=== PATIENT | male | born 1995 | race Caucasian/White ===

== ENCOUNTER 2019-09-18 17:56 | Emergency (ER) | payer BC ==
--- NOTE | 2019-09-18 18:24 | ED Physician Documentation ---
PD HPI CHEST PAIN - Stated complaint Stated Complaint: CHEST PX,SOA - Chief complaint Chief Complaint: General - History obtained from History obtained from: Patient - History of Present Illness Timing - onset: How many days ago (3) Timing - onset during: Rest Timing - duration: Days (3) Timing - details: Gradual onset Pain level max: 6 Pain level now: 0 Quality: Sharp Location: Left chest Radiation: Left upper extremity Improved by: Nothing Worsened by: Other (nothing) Associated symptoms: Shortness of air. No: Diaphoresis, Nausea, Vomiting, Feeling faint / dizzy, General Weakness, Palpitations, Cough - Additional information Additional information: 24-year-old male states that he has had a few episodes of chest pain over the past 3 to 4 days. They last for 1 to 2 minutes at a time. Described as sharp and on the left side of the chest. When these occur it is painful to breathe. He states that today the left side of his chest went numb as did his left shoulder. This resolved spontaneously. Currently is asymptomatic. No family history of aortic dissection, pulmonary embolus or young acute coronary syndrome. No syncope or near syncope. no recent travel or surgery Review of Systems Ten Systems: 10 systems reviewed and negative Constitutional: denies: Fever, Chills Nose: denies: Rhinorrhea / runny nose, Congestion Throat: denies: Sore throat Cardiac: denies: Palpitations, Pedal edema, Calf pain GI: denies: Nausea, Vomiting, Diarrhea Musculoskeletal: denies: Neck pain, Back pain Neurologic: denies: Headache PD PAST MEDICAL HISTORY - Past Medical History Past Medical History: No - Past Surgical History Past Surgical History: No - Present Medications Home Medications: Ambulatory Orders Medication Instructions Recorded Confirmed No Known Home Medications 09/18/19 09/18/19 - Allergies Allergies/Adverse Reactions: Allergies Allergy/AdvReac Type Severity Reaction Status Date / Time No Known Drug Allergies Allergy Verified 09/18/19 18:10 - Social History Does the pt smoke?: No Smoking Status: Never smoker Does the pt drink ETOH?: No Does the pt have substance abuse?: No - Immunizations Immunizations are current?: Yes PD ED PE NORMAL - Vitals Vital signs reviewed: Yes - General General: Alert and oriented X 3, No acute distress - HEENT HEENT: Moist mucous membranes, Pharynx benign - Neck Neck: Supple, no meningeal sign, No bruit - Cardiac Cardiac: RRR, No murmur, No gallop, No rub, Strong equal pulses - Respiratory Respiratory: No respiratory distress, Clear bilaterally - Abdomen Abdomen: Soft, Non tender, Non distended - Derm Derm: Warm and dry - Extremities Extremities: No edema, No calf tenderness / cord - Neuro Neuro: Alert and oriented X 3, 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, No motor deficit, No sensory deficit, Normal speech Results - Vitals Vitals: Vital Signs - 24 hr 09/18/19 09/18/19 09/18/19 18:08 18:23 19:17 Temperature 37.2 C 37.3 C 37.1 C Heart Rate 100 86 88 Respiratory 18 16 14 Rate Blood Pressure 122/78 124/68 109/67 O2 Saturation 99 98 99 Oxygen O2 Source Room air - EKG (time done) 1825 Rate: Rate (enter#) (88) Rhythm: NSR [place]: Normal Intervals: Normal [place] QRS: Normal Ischemia: Normal ST segments - Labs Labs: Laboratory Tests 09/18/19 09/18/19 09/18/19 18:25 18:25 18:25 WBC 5.9 RBC 5.03 Hgb 15.0 Hct 43.6 MCV 86.7 MCH 29.8 MCHC 34.4 RDW 12.3 Plt Count 194 MPV 11.2 Neut # (Auto) 3.8 Lymph # (Auto) 1.6 Dickey # (Auto) 0.5 Eos # (Auto) 0.1 Baso # (Auto) 0.0 Absolute Nucleated RBC 0.00 Nucleated RBC % 0.0 Sodium 142 Potassium 4.0 Chloride 102 Carbon Dioxide 30 Anion Gap 10.0 BUN 13 Creatinine 0.7 Estimated GFR (MDRD) 141 Glucose 104 H Calcium 9.5 Total Bilirubin 1.5 H AST 22 ALT 40 Alkaline Phosphatase 73 Troponin I High Sens < 2.3 L Total Protein 7.5 Albumin 4.3 Globulin 3.2 Albumin/Globulin Ratio 1.3 Lipase 30 - Rads (name of study) cxr Radiology: Prelim report reviewed, EMP read contemporaneously, See rad report (No acute disease) PD MEDICAL DECISION MAKING - ED course Complexity details: reviewed results, re-evaluated patient, considered differential (No ST elevation OK, no aortic dissection, no PE, no tension pneumothorax, no aortic aneurysm), d/w patient ED course: Patient with atypical chest pain. Unclear etiology. No evidence of acute coronary syndrome, pulmonary embolus, aortic dissection, pneumothorax. Patient counseled regarding signs and symptoms for which I believe and urgent re- evaluation would be necessary. Patient with good understanding of and agreement to plan and is comfortable going home at this time This document was made in part using voice recognition software. While efforts are made to proofread this document, sound alike and grammatical errors may occur. Departure - Departure Disposition: 01 Home, Self Care Clinical Impression: Atypical chest pain Condition: Good Instructions: ED Chest Pain Atypical Unkn Cause Follow-Up: your,doctor in 1 week [Other] Comments: The cause of your symptoms is unclear today. It does not appear to be related to a blood clot or any heart attacks. Please follow-up with your doctor for further evaluation. Discharge Date/Time: 09/18/19 19:17
[2019-09-18 18:36] LABS: BASOPHILS % (AUTO) 0.3 %; EOSINOPHILS # (AUTO) 0.1 10^3/uL (0.0-0.7); EOSINOPHILS % (AUTO) 1.2 %; LYMPHOCYTES # (AUTO) 1.6 10^3/uL (1.5-3.5); LYMPHOCYTES % (AUTO) 26.6 %; MEAN CORPUSCULAR HEMOGLOBIN 29.8 pg (27.0-31.0); MEAN CORPUSCULAR HGB CONC 34.4 g/dL (32.0-36.0); MEAN CORPUSCULAR VOLUME 86.7 fL (80.0-94.0); MEAN PLATELET VOLUME 11.2 fL (7.4-11.4); MONOCYTES # (AUTO) 0.5 10^3/uL (0.0-1.0); MONOCYTES % (AUTO) 8.3 %; NEUTROPHILS # (AUTO) 3.8 10^3/uL (1.5-6.6); NEUTROPHILS % (AUTO) 63.3 %; PLT - PLATELET COUNT 194 10^3/uL (130-450); RED BLOOD COUNT 5.03 10^6/uL (4.70-6.10); RED CELL DISTRIBUTION WIDTH 12.3 % (12.0-15.0); WHITE BLOOD COUNT 5.9 x10^3/uL (4.8-10.8)
[2019-09-18 18:47] LABS: ALBUMIN 4.3 g/dL (3.2-5.5); ALBUMIN/GLOBULIN RATIO 1.3 (1.0-2.2); BILIRUBIN,TOTAL 1.5 mg/dL (0.2-1.0); CALCIUM 9.5 mg/dL (8.5-10.3); CREATININE 0.7 mg/dL (0.6-1.2); TOTAL PROTEIN 7.5 g/dL (6.7-8.2)
--- NOTE | 2019-09-18 18:59 | XRAY Report ---
Reason: Chest Pain Procedure Date: 09/18/2019 Accession Number: [id number] / [id number] Procedure: XR - Chest 1 View X-Ray CPT Code: 36578 Final Report FULL RESULT: EXAM: CHEST RADIOGRAPHY EXAM DATE: 09/18/2019 06:35 PM. CLINICAL HISTORY: Left chest spasm/tightening. COMPARISON: None. TECHNIQUE: 1 view. FINDINGS: Lungs/Pleura: No focal opacities evident. No pleural effusion. No pneumothorax. Mediastinum: Within exam limitations, the cardiomediastinal contour is normal. Other: No bony abnormality identified. IMPRESSION: Normal single view chest. [facility]
[2019-09-18 19:18] VITALS: BP 109/67
== END 2019-09-18 19:17 | disposition home or self-care (01) ==
LOC: ED 17:56
DX: R07.89 Other chest pain (principal)
CPT/HCPCS: 36415; 71045; 80053; 83690; 84484; 85025; 93005; 99284